=== PATIENT | female | born 2000 | race Caucasian/White ===

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

== ENCOUNTER 2023-02-04 12:55 | Emergency (ER) | payer MEDICAID ==
[~2023-02-04] VITALS: Ht 162.6 cm; Wt 59.0 kg
[2023-02-04 13:20] VITALS: BP 116/71; PULSE 69; RESP 16; TEMP 98.1; O2SAT 98
[2023-02-04 13:41] VITALS: BP 116/71; PULSE 69; RESP 16; TEMP 98.1; O2SAT 98
== END 2023-02-04 13:40 | disposition home or self-care (01) ==
LOC: MED 12:55
DX: S01.511D Laceration without foreign body of lip, subsequent encounter (principal); Z48.02 Encounter for removal of sutures; W18.30XD Fall on same level, unspecified, subsequent encounter
CPT/HCPCS: 99281